=== PATIENT | male | born 1930 | race Caucasian/White ===

== ENCOUNTER 2017-08-23 18:51 | Inpatient (IN) | payer MEDICARE ==
[~2017-08-23] VITALS: Ht 182.9 cm; Wt 84.7 kg
[2017-08-23] MEDS ORDERED: SODIUM CHLORIDE 0.9% 1,000ML IVBOLUS ONE (19:00)
[2017-08-23] MEDS ORDERED: ACETAMINOPHEN 500 MG TABLET PO ONE (19:00)
[2017-08-23] MEDS ORDERED: ACETAMINOPHEN 500 MG TABLET ONE (19:19)
[2017-08-23 19:27] LABS: HEMATOCRIT 37.3 % (39.2-51.8); HEMOGLOBIN 12.4 g/dL (13.7-18.0); WHITE BLOOD COUNT 9.4 x10^3/uL (3.4-10)
[2017-08-23 19:45] LABS: BLOOD UREA NITROGEN 39 mg/dL (7-18)
[2017-08-23 19:49] LABS: ASPARTATE AMINO TRANSFERASE 19 U/L (15-37)
[2017-08-23] MEDS ORDERED: CEFTRIAXONE PMX 1GM/50ML 50 ML ONE (20:13)
[2017-08-23] MEDS ORDERED: LEVO25TA4 PO (20:14)
[2017-08-23] MEDS ORDERED: INSU300I SQ (20:14)
[2017-08-23] MEDS ORDERED: PIOG30TA3 PO (20:14)
[2017-08-23] MEDS ORDERED: MYBETRIQ PO (20:14)
[2017-08-23] MEDS ORDERED: WARF10TA6 PO (20:14)
[2017-08-23] MEDS ORDERED: MULT-257 PO (20:14)
[2017-08-23] MEDS ORDERED: OLME5TAB4 PO (20:14)
[2017-08-23] MEDS ORDERED: IRON15TA3 PO (20:14)
[2017-08-23] MEDS ORDERED: ASPI-496 PO (20:14)
[2017-08-23] MEDS ORDERED: WARF7.5T6 PO (20:14)
[2017-08-23] MEDS ORDERED: ATOR80TA PO (20:14)
[2017-08-23] MEDS ORDERED: ALPH300C PO (20:14)
[2017-08-23] MEDS ORDERED: DESO15CR10 TD (20:14)
[2017-08-23] MEDS ORDERED: CHOL10002 PO (20:14)
[2017-08-23] MEDS ORDERED: TAMS-11 PO (20:14)
[2017-08-23] MEDS ORDERED: CEFTRIAXONE PMX 1GM/50ML 50 ML IV ONE (20:30)
[2017-08-23] MEDS ORDERED: ONDANSETRON 2MG/ML, 2ML IVPush PRN (21:30)
[2017-08-23] MEDS ORDERED: HYDROcodone/APAP 5/325 TABLET PO PRN (21:30)
[2017-08-23] MEDS ORDERED: DEXTROSE 4 GM TAB.CHEW PO PRN (21:30)
[2017-08-23] MEDS ORDERED: GLUCAGON 1 MG IM PRN (21:30)
[2017-08-23] MEDS ORDERED: POLYETHYLENE GLYCOL 17 GM PACKET PO PRN (21:30)
[2017-08-23] MEDS ORDERED: CEFTRIAXONE PMX 1GM/50ML 50 ML IV SCH (21:30)
[2017-08-23] MEDS ORDERED: DOCUSATE 100 MG CAPSULE PO PRN (21:30)
[2017-08-23] MEDS ORDERED: ACETAMINOPHEN 325 MG TABLET PO PRN (21:30)
[2017-08-23] MEDS ORDERED: morphine SULFATE 10 MG/ML, 1ML IVPush PRN (21:30)
[2017-08-23] MEDS ORDERED: DEXTROSE 50%, 50ML SYRINGE IVPush PRN (21:30)
[2017-08-23 22:01] VITALS: BP 98/57
[2017-08-23 22:02] VITALS: BP 98/57
[2017-08-23] MEDS: WARFARIN 7.5 MG TABLET PO-COUM SCH (23:25)
[2017-08-23] MEDS: SODIUM CHLORIDE 0.9% 1,000 ML IV SCH (23:46)
[2017-08-24 02:20] VITALS: BP 148/80
[2017-08-24 04:48] LABS: HEMATOCRIT 34.6 % (39.2-51.8); HEMOGLOBIN 11.8 g/dL (13.7-18.0); WHITE BLOOD COUNT 8.6 x10^3/uL (3.4-10)
[2017-08-24 05:05] LABS: BLOOD UREA NITROGEN 37 mg/dL (7-18)
[2017-08-24] MEDS: INSULIN ASPART 100 UNITS/ML, PEN SQ-INSULIN SCH ×4 (07:00→20:21)
[2017-08-24 08:03] VITALS: BP 137/75
[2017-08-24] MEDS: SODIUM CHLORIDE 0.9% 1,000 ML IV SCH (08:28)
[2017-08-24] MEDS: ASPIRIN 81 MG TABLET EC PO SCH (08:52)
[2017-08-24] MEDS: LOSARTAN 25MG TABLET PO SCH ×2 (08:52→20:21)
[2017-08-24] MEDS: CEFTRIAXONE PMX 1GM/50ML 50 ML IV SCH ×2 (08:52→20:20)
[2017-08-24] MEDS: LEVOTHYROXINE 25 MCG TABLET PO SCH (08:52)
[2017-08-24] MEDS: TAMSULOSIN 0.4 MG CAP.ER.24H PO SCH (08:52)
[2017-08-24] MEDS: SENNA/DOCUSATE TABLET PO SCH (08:52)
[2017-08-24] MEDS: SODIUM CHLORIDE FLUSH 10ML SYR IVF SCH ×2 (08:53→20:21)
[2017-08-24] MEDS: PIOGLITAZONE 15 MG TABLET PO SCH (08:53)
[2017-08-24] MEDS: DESOXIMETASONE TD SCH (08:53)
[2017-08-24] MEDS: MYBETRIQ 50 MG PO SCH (08:53)
[2017-08-24] MEDS ORDERED: WARFARIN 10 MG TABLET PO-COUM SCH (09:00)
[2017-08-24 14:06] VITALS: BP 107/58
[2017-08-24] MEDS ORDERED: PHARMACY INSTRUCTION MC PRN (17:30)
[2017-08-24] MEDS ORDERED: OXYMETAZOLINE NASAL SPRAY 0.05%, 15ML NAS PRN (17:30)
[2017-08-24] MEDS: WARFARIN 7.5 MG TABLET PO-COUM SCH (18:45)
[2017-08-24 19:38] VITALS: BP 116/70
[2017-08-24] MEDS ORDERED: CEFTRIAXONE PMX 1GM/50ML 50 ML IV SCH (20:00)
[2017-08-24] MEDS: ATORVASTATIN 80 MG TABLET PO SCH (20:20)
[2017-08-24] MEDS: INSULIN DETEMIR 100 UNITS/ML, PEN SQ-INSULIN SCH (20:43)
[2017-08-25 01:38] VITALS: BP 121/67
[2017-08-25 05:26] LABS: BLOOD UREA NITROGEN 30 mg/dL (7-18)
[2017-08-25] MEDS: INSULIN ASPART 100 UNITS/ML, PEN SQ-INSULIN SCH ×4 (07:00→21:00)
[2017-08-25] MEDS: TAMSULOSIN 0.4 MG CAP.ER.24H PO SCH (08:35)
[2017-08-25] MEDS: LOSARTAN 25MG TABLET PO SCH ×2 (08:35→20:54)
[2017-08-25] MEDS: CEFTRIAXONE PMX 1GM/50ML 50 ML IV SCH (08:35)
[2017-08-25] MEDS: SENNA/DOCUSATE TABLET PO SCH (08:35)
[2017-08-25] MEDS: LEVOTHYROXINE 25 MCG TABLET PO SCH (08:35)
[2017-08-25] MEDS: ASPIRIN 81 MG TABLET EC PO SCH (08:35)
[2017-08-25] MEDS: PIOGLITAZONE 15 MG TABLET PO SCH (08:36)
[2017-08-25 08:44] VITALS: BP 116/69
[2017-08-25] MEDS: MYBETRIQ 50 MG PO SCH ×2 (09:00→11:48)
[2017-08-25] MEDS: SODIUM CHLORIDE FLUSH 10ML SYR IVF SCH ×2 (09:00→20:55)
[2017-08-25] MEDS: DESOXIMETASONE TD SCH (09:00)
[2017-08-25 13:04] VITALS: BP 118/63
[2017-08-25] MEDS: WARFARIN 7.5 MG TABLET PO-COUM SCH (18:30)
[2017-08-25 19:31] VITALS: BP 99/62
[2017-08-25] MEDS: CEFTRIAXONE 1,000 MG in DEXTROSE 5% 50 ML IV SCH (20:55)
[2017-08-25] MEDS: ATORVASTATIN 80 MG TABLET PO SCH (20:56)
[2017-08-25] MEDS: INSULIN DETEMIR 100 UNITS/ML, PEN SQ-INSULIN SCH (21:20)
[2017-08-26 00:42] VITALS: BP 130/70
[2017-08-26 05:30] LABS: BLOOD UREA NITROGEN 33 mg/dL (7-18)
[2017-08-26 06:52] VITALS: BP 119/60
[2017-08-26] MEDS: INSULIN ASPART 100 UNITS/ML, PEN SQ-INSULIN SCH ×4 (08:38→20:45)
[2017-08-26] MEDS: SODIUM CHLORIDE FLUSH 10ML SYR IVF SCH ×2 (08:40→20:44)
[2017-08-26] MEDS: CEFTRIAXONE 1,000 MG in DEXTROSE 5% 50 ML IV SCH ×2 (08:40→20:44)
[2017-08-26] MEDS: PIOGLITAZONE 15 MG TABLET PO SCH (08:43)
[2017-08-26] MEDS: LOSARTAN 25MG TABLET PO SCH ×2 (08:44→20:45)
[2017-08-26] MEDS: ASPIRIN 81 MG TABLET EC PO SCH (08:44)
[2017-08-26] MEDS: LEVOTHYROXINE 25 MCG TABLET PO SCH (08:44)
[2017-08-26] MEDS: SENNA/DOCUSATE TABLET PO SCH (08:44)
[2017-08-26] MEDS: TAMSULOSIN 0.4 MG CAP.ER.24H PO SCH (08:44)
[2017-08-26] MEDS: DESOXIMETASONE TD SCH (08:47)
[2017-08-26 12:57] VITALS: BP 112/71
[2017-08-26] MEDS: WARFARIN 7.5 MG TABLET PO-COUM SCH (18:08)
[2017-08-26 19:37] VITALS: BP 113/67
[2017-08-26] MEDS: ATORVASTATIN 80 MG TABLET PO SCH (20:45)
[2017-08-26] MEDS: INSULIN DETEMIR 100 UNITS/ML, PEN SQ-INSULIN SCH (20:45)
[2017-08-27 01:47] VITALS: BP 123/70
[2017-08-27] MEDS: INSULIN ASPART 100 UNITS/ML, PEN SQ-INSULIN SCH ×4 (07:00→21:26)
[2017-08-27 07:06] VITALS: BP 117/66
[2017-08-27] MEDS: MYBETRIQ 50 MG PO SCH (09:00)
[2017-08-27] MEDS: SENNA/DOCUSATE TABLET PO SCH (09:00)
[2017-08-27] MEDS: DESOXIMETASONE TD SCH (09:00)
[2017-08-27] MEDS: SODIUM CHLORIDE FLUSH 10ML SYR IVF SCH ×2 (09:40→21:14)
[2017-08-27] MEDS: CEFTRIAXONE 1,000 MG in DEXTROSE 5% 50 ML IV SCH ×2 (09:40→21:14)
[2017-08-27] MEDS: ASPIRIN 81 MG TABLET EC PO SCH (09:41)
[2017-08-27] MEDS: TAMSULOSIN 0.4 MG CAP.ER.24H PO SCH (09:41)
[2017-08-27] MEDS: PIOGLITAZONE 15 MG TABLET PO SCH (09:42)
[2017-08-27] MEDS: LOSARTAN 25MG TABLET PO SCH ×2 (09:42→21:14)
[2017-08-27] MEDS: LEVOTHYROXINE 25 MCG TABLET PO SCH (09:42)
[2017-08-27 13:13] VITALS: BP 95/52
[2017-08-27 19:36] VITALS: BP 103/56
[2017-08-27] MEDS: WARFARIN 7.5 MG TABLET PO-COUM SCH (21:13)
[2017-08-27] MEDS: ATORVASTATIN 80 MG TABLET PO SCH (21:14)
[2017-08-27] MEDS: INSULIN DETEMIR 100 UNITS/ML, PEN SQ-INSULIN SCH (21:27)
[2017-08-28 00:21] VITALS: BP 135/58
[2017-08-28] MEDS: INSULIN ASPART 100 UNITS/ML, PEN SQ-INSULIN SCH ×4 (07:00→20:33)
[2017-08-28 07:18] VITALS: BP 132/81
[2017-08-28] MEDS: DESOXIMETASONE TD SCH (09:00)
[2017-08-28] MEDS: MYBETRIQ 50 MG PO SCH (09:00)
[2017-08-28] MEDS: SENNA/DOCUSATE TABLET PO SCH (09:00)
[2017-08-28] MEDS: SODIUM CHLORIDE FLUSH 10ML SYR IVF SCH ×2 (09:11→20:10)
[2017-08-28] MEDS: CEFTRIAXONE 1,000 MG in DEXTROSE 5% 50 ML IV SCH (09:11)
[2017-08-28] MEDS: LEVOTHYROXINE 25 MCG TABLET PO SCH (09:12)
[2017-08-28] MEDS: TAMSULOSIN 0.4 MG CAP.ER.24H PO SCH (09:12)
[2017-08-28] MEDS: ASPIRIN 81 MG TABLET EC PO SCH (09:12)
[2017-08-28] MEDS: LOSARTAN 25MG TABLET PO SCH ×2 (09:13→20:10)
[2017-08-28] MEDS: PIOGLITAZONE 15 MG TABLET PO SCH (09:13)
[2017-08-28 13:28] VITALS: BP 91/50
[2017-08-28] MEDS: WARFARIN 7.5 MG TABLET PO-COUM SCH (17:17)
[2017-08-28 19:32] VITALS: BP 113/62
[2017-08-28] MEDS: ATORVASTATIN 80 MG TABLET PO SCH (20:10)
[2017-08-28] MEDS: INSULIN DETEMIR 100 UNITS/ML, PEN SQ-INSULIN SCH (20:32)
[2017-08-28] MEDS ORDERED: CEFTRIAXONE 1,000 MG in SODIUM CHLORIDE 0.9% 50 ML IV SCH (21:00)
[2017-08-28] MEDS ORDERED: POLYETHYLENE GLYCOL 17 GM PACKET PO PRN (22:30)
[2017-08-28] MEDS ORDERED: ONDANSETRON 2MG/ML, 2ML IVPush PRN (22:30)
[2017-08-28] MEDS ORDERED: DOCUSATE 100 MG CAPSULE PO PRN (22:30)
[2017-08-28] MEDS ORDERED: GLUCAGON 1 MG IM PRN (22:30)
[2017-08-28] MEDS ORDERED: OXYMETAZOLINE NASAL SPRAY 0.05%, 15ML NAS PRN (22:30)
[2017-08-28] MEDS ORDERED: DEXTROSE 4 GM TAB.CHEW PO PRN (22:30)
[2017-08-28] MEDS ORDERED: DEXTROSE 50%, 50ML SYRINGE IVPush PRN (22:30)
[2017-08-28] MEDS ORDERED: PHARMACY INSTRUCTION MC PRN (22:30)
[2017-08-28] MEDS ORDERED: morphine SULFATE 10 MG/ML, 1ML IVPush PRN (22:30)
[2017-08-29 02:21] VITALS: BP 162/78
[2017-08-29 06:56] VITALS: BP 131/68
[2017-08-29] MEDS: INSULIN ASPART 100 UNITS/ML, PEN SQ-INSULIN SCH ×2 (07:00→11:41)
[2017-08-29] MEDS ORDERED: CEFTRIAXONE PMX 2GM/50ML 50 ML IV SCH (08:00)
[2017-08-29] MEDS: DESOXIMETASONE TD SCH (08:19)
[2017-08-29] MEDS: MYBETRIQ 50 MG PO SCH (08:24)
[2017-08-29] MEDS: SENNA/DOCUSATE TABLET PO SCH (08:25)
[2017-08-29] MEDS: PIOGLITAZONE 15 MG TABLET PO SCH (08:25)
[2017-08-29] MEDS: TAMSULOSIN 0.4 MG CAP.ER.24H PO SCH (08:25)
[2017-08-29] MEDS: LEVOTHYROXINE 25 MCG TABLET PO SCH (08:25)
[2017-08-29] MEDS: LOSARTAN 25MG TABLET PO SCH (08:25)
[2017-08-29] MEDS: ASPIRIN 81 MG TABLET EC PO SCH (08:27)
[2017-08-29] MEDS ORDERED: SODIUM CHLORIDE FLUSH 10ML SYR IVF SCH (09:00)
[2017-08-29 12:30] VITALS: BP 117/67
[2017-08-29] MEDS ORDERED: CEFT2FRO2 IV (14:59)
[2017-08-29 16:41] VITALS: BP 93/56
== END 2017-08-29 17:57 | disposition home or self-care (01) | DRG 871 ==
LOC: ED 19:44 → SUATTDRO 20:57 → EDIP 21:14 → 3NE 22:00
PROVIDERS: ADMIT Family Medicine; ATTEND Family Medicine
PROC: 02HV33Z Insertion of Infusion Device into Superior Vena Cava, Percutaneous Approach (ICD-10-PCS; principal; 2017-08-29)
PROC: B5181ZA Fluoroscopy of Superior Vena Cava using Low Osmolar Contrast, Guidance (ICD-10-PCS; 2017-08-29)
PROC: B548ZZA Ultrasonography of Superior Vena Cava, Guidance (ICD-10-PCS; 2017-08-29)
DX: A41.9 Sepsis, unspecified organism (principal); N17.0 Acute kidney failure with tubular necrosis; D68.69 Other thrombophilia; E11.22 Type 2 diabetes mellitus with diabetic chronic kidney disease; I48.92 Unspecified atrial flutter; N39.0 Urinary tract infection, site not specified; B96.20 Unspecified Escherichia coli [E. coli] as the cause of diseases classified elsewhere; B96.89 Other specified bacterial agents as the cause of diseases classified elsewhere; E03.9 Hypothyroidism, unspecified; R26.2 Difficulty in walking, not elsewhere classified; N18.9 Chronic kidney disease, unspecified; Z79.01 Long term (current) use of anticoagulants; Z83.3 Family history of diabetes mellitus; Z87.440 Personal history of urinary (tract) infections
CPT/HCPCS: 36415; 36569; 71010; 76937; 77001; 80048; 80053; 81001; 82962; 83605; 83735; 84145; 85025; 85610; 87040; 87077; 87086; 87186; 93005; 96361; 96365; J0696; J1815; C1751; J7030